=== PATIENT | female | born 1940 | race Caucasian/White ===

== ENCOUNTER → 2023-06-25 07:44 | Outpatient (REF) | payer OTHER, SELFPAY ==
[2023-06-25 08:25] LABS: % Basophils 1.5 % (0-2); % Eosinophils 8.3 % (0-6); % Immature Granulocytes 0.3 % (0-0.5); % Lymphocytes 28.8 % (20.5-51.1); % Monocytes 6.4 % (1.7-9.3); % Neutrophils 54.7 % (42.2-75.2); Absolute Basophils 0.1 10^3/uL (0-0.2); Absolute Eosinophils 0.7 10^3/uL (0-0.7); Absolute Lymphocytes 2.3 10^3/uL (1.2-3.4); Absolute Monocytes 0.5 10^3/uL (0.1-0.6); Absolute Neutrophils 4.3 10^3/uL (1.4-6.5); Hematocrit 44.4 % (37.0-47.0); Hemoglobin 14.6 g/dL (12.0-16.0); Mean Corp Hgb Conc. 32.9 g/dL (33.0-37.0); Mean Corpuscular Volume 88.1 fL (81.0-99.0); Mean Platelet Volume 9.1 fL (7.4-10.4); Nucleated Red Blood Cells % 0 %; Platelet Count 365 10^3/uL (130-400); Red Blood Cell Count 5.04 10^6/uL (4.20-5.40); Red Cell Dist. Width 13.7 % (11.5-14.5); White Blood Cell Count 7.9 10^3/uL (4.8-10.8)
[2023-06-25 08:50] LABS: ALT (SGPT) 18 U/L (0-35); AST (SGOT) 27 U/L (14-36); Albumin 4.8 g/dl (3.5-5.0); Alkaline Phosphatase 118 U/L (38-126); Blood Urea Nitrogen 19 mg/dl (7-17); Calcium 9.7 mg/dl (8.4-10.2); Carbon Dioxide 28 mmol/L (22-30); Chloride 100 mmol/L (98-107); Glucose 97 mg/dl (70-99); HDL Cholesterol 68 mg/dl; LDL Cholesterol, Calculated 102 mg/dl; Potassium 4.7 mmol/L (3.5-5.1); Sodium 139 mmol/L (135-145); Total Bilirubin 0.6 mg/dl (0.2-1.3); Total Cholesterol 195 mg/dl (50-199); Total Protein 7.7 g/dl (6.3-8.2); Triglyceride 128 mg/dl (10-149); Very Low Density Lipoprotein 25 mg/dl (0-30); eGFR > 60.00
[2023-06-25 09:20] LABS: TSH 1.39 uIU/ml (0.47-4.68)
== END ==
LOC: REG 07:44
PROVIDERS: ATTENDING PHYSICIAN Nurse Practitioner
DX: D72.829 Elevated white blood cell count, unspecified (principal); E87.1 Hypo-osmolality and hyponatremia; Z76.89 Persons encountering health services in other specified circumstances; Z00.00 Encounter for general adult medical examination without abnormal findings; E78.5 Hyperlipidemia, unspecified; R53.83 Other fatigue
CPT/HCPCS: 36415; 80053; 80061; 84443; 85025

== ENCOUNTER 2024-03-13 03:06 | Inpatient (IN) | payer OTHER, SELFPAY ==
[2024-03-12 20:33] VITALS: BP 108/63
--- NOTE | 2024-03-12 20:33 | ED.GENMED ---
ED Provider Triage
<Norma Giordano [employer] - Last Filed: 03/12/24 20:38>
-
Patient seen by provider in Triage?: Seen in Triage
Attestation: A medical screening examination has been initiated by a qualified medical provider. Based on the assessment performed at this time, it has been determined that an emergent medical condition may exist and the patient has been informed
that further medical evaluation and possible additional diagnostic testing may be needed.
HPI: 83-year-old female hx cholecystectomy, HTN, who said she sat down to dinner at 515 and suddenly felt ill so did not eat anything, she has had about 5 episodes of vomiting and midepigastric pain radiating around to the left flank. Feels
nauseous now. Last emesis was 30 minutes ago. Denies fever but has had chills. Denies diarrhea or constipation. No sick contacts.
GENERAL: Alert , in no apparent distress
EYE: No visual abnormalities.
NECK: Trachea midline
ENT: No visible abnormalities.
LUNGS: No acute respiratory distress
NEUROLOGICAL: Alert and oriented
SKIN: Skin intact. No visible changes.
MUSCULOSKELETAL: Moving extremities normally
PSYCH: Normal and appropriate interaction.
This is a medical evaluation conducted in person to initiate diagnostic evaluation and provide initial therapeutics. Please see further documentation by the treating clinician.
History of Present Illness
<Norma Giordano, [employer] - Last Filed: 03/12/24 20:38>
General
Chief Complaint: Abdominal Pain
Time Seen by Provider: 03/13/24 00:58
<Toy Brown DO - Last Filed: 03/13/24 02:07>
History of Present Illness
History of Present Illness:
TIME OF INITIAL ENCOUNTER: 1:05 AM
HPI: Patient presents due to epigastric discomfort associated with several episodes of vomiting earlier today. Of note, she had pancreatitis last year and at that time she had a cholecystectomy during that hospitalization. This feels very similar
to the time she had pancreatitis in the past. She does not drink alcohol.
EXAM:
GENERAL: Well appearing but in mild distress
HEENT: Moist oral mucosa
CARDIOVASCULAR: No murmurs, normal heart rate, regular rhythm, No chest wall tenderness
PULMONARY: No respiratory distress, breath sounds are clear and equal
ABDOMEN: Soft with no peritoneal signs, mild to moderate epigastric tenderness
NEUROLOGIC: Good strength all extremities, no coordination deficits
PSYCHIATRIC: Appropriate mental status, normal insight and judgement
EXTREMITIES: Nontender, no edema, moves all extremities equally
SKIN: No rash, no lesions
NUMBER AND COMPLEXITY OF PROBLEMS ADDRESSED AT THE ENCOUNTER
� Chronic conditions affecting care: She has had pancreatitis in the past
� Acute Exacerbation and/or Progression of Chronic Illness: This is an acute but recurring problem
� Differential Diagnosis includes: Recurrence of pancreatitis, hepatitis, bowel obstruction, mesenteric adenitis, UTI,
AMOUNT AND/OR COMPLEXITY OF DATA TO BE REVIEWED AND ANALYZED
� I performed an independent evaluation of and my interpretation is:
EKG:
CT: CT imaging is consistent with acute pancreatitis, she has had cholecystectomy, no common bile duct stones noted
X-rays:
Laboratory Studies: White count 26.4, hemoglobin 14.2, lipase unavailable, glucose 180, other chemistries relatively unremarkable
Other:
� Review of other/old records: I reviewed records, the patient had pancreatitis in June 2022t that time she had a cholecystectomy urinalysis shows greater than 100 white cells per high-powered field, however there is greater
than 30 squamous epithelial cells
� Clinical information was obtained by an independent historian: I spoke to daughter at bedside
� Prescriptions/Medications Considered but not given:
� Further testing considered but not performed:
RISK OF COMPLICATIONS AND/OR MORBIDITY OR MORTALITY OF PATIENT MANAGEMENT
� Social determinants of health affecting care: Lives at home
� Discussion with other providers: Hospitalist, Dr. Fitzgerald for admission
� Escalation of care including admission/observation vs risk of discharge considered: CT imaging is consistent with acute pancreatitis. She has had pancreatitis in the past. Several lipases were sent down to the lab including
ones that were obtained by the lab/IV team but they have been 'hemolyzed' recurrently. Although she has leukocytosis, she is afebrile and fairly well-appearing. The patient was given analgesia and IV fluids.
ANY OTHER UPDATES:
Past History
<Norma Giordano, [employer] - Last Filed: 03/12/24 20:38>
Past History
ED Past Medical History: Other (cystitis)
ED Past Surgical History: Gynecological and Tonsilectomy
Social History
Tobacco: Non-smoker
Living: with family
Phy Exam
<Toy Brown DO - Last Filed: 03/13/24 02:07>
Physical Exam
Physical Exam:
See HPI
Course
<Norma Giordano, [employer] - Last Filed: 03/12/24 20:38>
Orders/Labs/Results
Orders:
Orders
03/12/24 20:36
Urinalysis Reflex To Culture Urgent
Date Specimen was Collected: 03/13/24
Time Specimen was Collected: 01:24
Ondansetron HCl [Zofran] 4 mg PO NOW STA
03/12/24 20:37
CT Abd/pelvis Wo Iv Cont Urgent
Comment: changed to non contrast iv infiltrated
Reason For Exam: epigastric pain radiating around to left flank
03/12/24 20:39
Ondansetron Orally Disint [Zofran Odt (Orally Disintegrating)] 4 mg .ROUTE .STK-MED ONE
03/12/24 20:41
Ondansetron Orally Disint [Zofran Odt (Orally Disintegrating)] 4 mg PO NOW STA
03/12/24 20:42
Amylase Urgent
Comment: ADD ON
Complete Blood Count/With Diff Urgent
Comprehensive Metabolic Panel Urgent
03/13/24 00:47
Add On- LAB Urgent
Tests Added?: amalyse
03/13/24 00:51
0.9% Sodium Chloride 1000 ml [Nss] 1,000 ml IV BOLUS
Morphine Sulfate 4 mg IV NOW STA
03/13/24 01:02
Add On- LAB Urgent
Tests Added?: LDH
03/13/24 01:07
0.9% Sodium Chloride 1000 ml [Nss] 1,000 ml IV BOLUS
Ondansetron Injectable [Zofran] 4 mg IV NOW STA
03/13/24 01:25
Urine Microscopic Reflex Cult Urgent
Urine Culture Urgent
DEMARCO Source: U
Specimen Description:
Date Specimen was Collected: 03/13/24
Time Specimen was Collected: 01:24
03/13/24 01:31
Admit/Transfer Patient As Directed
Co-Sign Provider:
Level of Care: Inpatient admission
Assign to:: Medical/Surgical
Physician / Group: hospitalist
Diagnosis: acute pancreatitis
Reason for Hospitalization: acute pancreatitis
Expected length of stay greater than two midnights?: Yes
ELOS- Estimated Length of Stay in days: 2
I certify the patient meets the requirements for IP care: Yes
03/13/24 01:37
PRN Pain Medication Management As Directed
May give lesser potent ordered pain med per pt: Yes
preference::
Protocol:: Medication orders for pain may be administered in a
manner that supports deferring to patient preference
when the pt is:
- Requesting an ordered lesser potent pain medication.
Least to most potent pain medications are defined
as: acetaminophen < NSAID < tramadol < opioids
(morphine, oxycodone, hydromorphone).
- Requesting a lesser dose of the same medication IF
ORDERED.
- Requesting a less intrusive route of administration
if both routes are prescribed by the provider (PO <
IV).
03/13/24 01:38
Code Status As Directed
Resuscitation Status: Full Code
03/13/24 01:46
Amylase Urgent
LDH Urgent
Comment: ADDED
Lipase Urgent
03/13/24 01:47
Lactic Acid Urgent
Abnormal Lab Results
03/12/24 03/13/24
20:42 01:25
WBC 26.4 H 10^3/uL
(4.8-10.8)
Plt Count 404 H 10^3/uL
(130-400)
Abs Immat Gran (auto) 0.1 H 10^3/uL
(0-0.05)
Absolute Neuts (auto) 23.2 H 10^3/uL
(1.4-6.5)
Absolute Monos (auto) 1.2 H 10^3/uL
(0.1-0.6)
Neutrophils % 87.7 H %
(42.2-75.2)
Lymphocytes % 6.8 L %
(20.5-51.1)
Glucose 180 H mg/dl
(70-99)
Urine Ketones 1+ A
(Negative)
Ur Occult Blood Reflex Trace A
(Negative)
Leukocyte Esterase Rfl 2+ A
(Negative)
Urine RBC 3-6 A /HPF
(0-2)
Urine WBC (Reflex) >100 A /HPF
(0-5)
Urine Bacteria (Reflex) Many A
(Negative)
03/12/24 20:42
03/12/24 20:42
Vital Signs
Initial and Last Documented VS:
Initial Vital Signs
Pulse Resp BP Pulse Ox
85 20 108/63 97
03/12/24 20:33 03/12/24 20:33 03/12/24 20:33 03/12/24 20:33
Last Documented Vital Signs
Temp Pulse Resp BP Pulse Ox
36.3 C 91 28 127/67 95
03/12/24 20:34 03/13/24 00:30 03/13/24 00:30 03/12/24 23:21 03/12/24 22:48
<Toy Brown, - Last Filed: 03/13/24 02:07>
Orders/Labs/Results
Orders:
Orders
03/12/24 20:36
Urinalysis Reflex To Culture Urgent
Date Specimen was Collected: 03/13/24
Time Specimen was Collected: 01:24
Ondansetron HCl [Zofran] 4 mg PO NOW STA
03/12/24 20:37
CT Abd/pelvis Wo Iv Cont Urgent
Comment: changed to non contrast iv infiltrated
Reason For Exam: epigastric pain radiating around to left flank
03/12/24 20:39
Ondansetron Orally Disint [Zofran Odt (Orally Disintegrating)] 4 mg .ROUTE .STK-MED ONE
03/12/24 20:41
Ondansetron Orally Disint [Zofran Odt (Orally Disintegrating)] 4 mg PO NOW STA
03/12/24 20:42
Amylase Urgent
Comment: ADD ON
Complete Blood Count/With Diff Urgent
Comprehensive Metabolic Panel Urgent
03/13/24 00:47
Add On- LAB Urgent
Tests Added?: amalyse
03/13/24 00:51
0.9% Sodium Chloride 1000 ml [Nss] 1,000 ml IV BOLUS
Morphine Sulfate 4 mg IV NOW STA
03/13/24 01:02
Add On- LAB Urgent
Tests Added?: LDH
03/13/24 01:07
0.9% Sodium Chloride 1000 ml [Nss] 1,000 ml IV BOLUS
Ondansetron Injectable [Zofran] 4 mg IV NOW STA
03/13/24 01:25
Urine Microscopic Reflex Cult Urgent
Urine Culture Urgent
DEMARCO Source: U
Specimen Description:
Date Specimen was Collected: 03/13/24
Time Specimen was Collected: :24
03/13/24 01:31
Admit/Transfer Patient As Directed
Co-Sign Provider:
Level of Care: Inpatient admission
Assign to:: Medical/Surgical
Physician / Group: hospitalist
Diagnosis: acute pancreatitis
Reason for Hospitalization: acute pancreatitis
Expected length of stay greater than two midnights?: Yes
ELOS- Estimated Length of Stay in days: 2
I certify the patient meets the requirements for IP care: Yes
03/13/24 01:37
PRN Pain Medication Management As Directed
May give lesser potent ordered pain med per pt: Yes
preference::
Protocol:: Medication orders for pain may be administered in a
manner that supports deferring to patient preference
when the pt is:
- Requesting an ordered lesser potent pain medication.
Least to most potent pain medications are defined
as: acetaminophen < NSAID < tramadol < opioids
(morphine, oxycodone, hydromorphone).
- Requesting a lesser dose of the same medication IF
ORDERED.
- Requesting a less intrusive route of administration
if both routes are prescribed by the provider (PO <
IV).
03/13/24 01:38
Code Status As Directed
Resuscitation Status: Full Code
03/13/24 01:46
Amylase Urgent
LDH Urgent
Comment: ADDED
Lipase Urgent
03/13/24 01:47
Lactic Acid Urgent
Abnormal Lab Results
03/12/24 03/13/24
20:42 01:25
WBC 26.4 H 10^3/uL
(4.8-10.8)
Plt Count 404 H 10^3/uL
(130-400)
Abs Immat Gran (auto) 0.1 H 10^3/uL
(0-0.05)
Absolute Neuts (auto) 23.2 H 10^3/uL
(1.4-6.5)
Absolute Monos (auto) 1.2 H 10^3/uL
(0.1-0.6)
Neutrophils % 87.7 H %
(42.2-75.2)
Lymphocytes % 6.8 L %
(20.5-51.1)
Glucose 180 H mg/dl
(70-99)
Urine Ketones 1+ A
(Negative)
Ur Occult Blood Reflex Trace A
(Negative)
Leukocyte Esterase Rfl 2+ A
(Negative)
Urine RBC 3-6 A /HPF
(0-2)
Urine WBC (Reflex) >100 A /HPF
(0-5)
Urine Bacteria (Reflex) Many A
(Negative)
03/12/24 20:42
03/12/24 20:42
Vital Signs
Initial and Last Documented VS:
Initial Vital Signs
Pulse Resp BP Pulse Ox
85 20 108/63 97
03/12/24 20:33 03/12/24 20:33 03/12/24 20:33 03/12/24 20:33
Last Documented Vital Signs
Temp Pulse Resp BP Pulse Ox
36.3 C 91 28 127/67 95
03/12/24 20:34 03/13/24 00:30 03/13/24 00:30 03/12/24 23:21 03/12/24 22:48
<Toy Brown, - Last Filed: 03/13/24 02:07>
*Critical Care Note
Total Time (30-74mins, 75-104mins- exclusive of procedures): Not Applicable
ED Attending Note
<Norma Giordano NP - Last Filed: 03/12/24 20:38>
-
Portions of this chart may have been created with voice recognition software.� Occasional wrong word or��sound alike� substitutions may have occurred due to the inherent limitations of voice recognition software.
Discharge Plan
Departure
Patient Disposition: Admit
Date of Disposition: 03/13/24
Time of Disposition: 02:05
Presentation/result/management discussed w/ accepting MD/DO: Hospitalist
Discharge Problem:
Acute pancreatitis
Prescriptions:
No Action
amlodipine 5 mg Tablet
5 mg PO DAILY
multivitamin Tablet
1 tab PO DAILY
magnesium 500 mg Tablet
500 mg PO DAILY
acetaminophen 650 mg Tablet
650 mg PO Q6H PRN (Reason: pain)
apple cider vinegar 600 mg Capsule
1,200 mg PO DAILY
ibuprofen 400 mg Tablet
400 mg PO Q6H PRN (Reason: pain)
zinc 50 mg Tablet
50 mg PO DAILY
cinnamon bark [Cinnamon] 500 mg Capsule
2,500 mg PO DAILY
cholecalciferol (vitamin D3) 125 mcg (5,000 unit) Tablet
125 mcg PO DAILY
red yeast rice 600 mg Tablet
600 mg PO QPM
mupirocin 2 % Ointment
1 applic TOPICAL BID
aspirin 325 mg tablet
325 mg PO DAILY 30 Days Qty: 30 0RF
Rx Instructions:
Take for 30 days after surgery
celecoxib [Celebrex] 100 mg capsule
100 mg PO BID 30 Days Qty: 60 0RF
tramadol 50 mg tablet
50 mg PO Q6H PRN (Reason: pain) 14 Days Qty: 60 0RF
dexamethasone 4 mg tablet
4 mg PO BID Qty: 7 0RF
Referrals:
PRIVATE,PHYSICIAN [Active] -
Interventions
Interventions:
*Risk Screen - Suicide Last Done: 03/12/24 20:33
*General Assessment Last Done: 03/12/24 20:33
*Neglect/Abuse Screening Last Done: 03/12/24 20:33
QY-Vsomxr-Nrqxpjymiv Assessment Last Done: 03/12/24 22:48
Discharge Date and Time
Print Language: HUNGARIAN
[2024-03-12] MEDS: ZOFRAN ODT (ORALLY DISINTEGRATING) 4 MG PO (20:41)
[2024-03-12 21:03] LABS: Hematocrit 42.5 % (37.0-47.0); Hemoglobin 14.2 g/dL (12.0-16.0); Mean Corp Hgb Conc. 33.4 g/dL (33.0-37.0); Mean Corpuscular Hgb 29.8 pg (27.0-31.0); Mean Corpuscular Volume 89.3 fL (81.0-99.0); Mean Platelet Volume 9.1 fL (7.4-10.4); Platelet Count 404 10^3/uL (130-400); Red Blood Cell Count 4.76 10^6/uL (4.20-5.40); Red Cell Dist. Width 13.1 % (11.5-14.5); White Blood Cell Count 26.4 10^3/uL (4.8-10.8)
[2024-03-12 21:16] LABS: % Basophils 0.2 % (0-2); % Eosinophils 0.2 % (0-6); % Immature Granulocytes 0.5 % (0-0.5); % Lymphocytes 6.8 % (20.5-51.1); % Monocytes 4.6 % (1.7-9.3); % Neutrophils 87.7 % (42.2-75.2); Absolute Basophils 0.1 10^3/uL (0-0.2); Absolute Immature Granulocytes 0.1 10^3/uL (0-0.05); Absolute Lymphocytes 1.8 10^3/uL (1.2-3.4); Absolute Monocytes 1.2 10^3/uL (0.1-0.6); Absolute Neutrophils 23.2 10^3/uL (1.4-6.5); Nucleated Red Blood Cells % 0 %
[2024-03-12 21:21] LABS: ALT (SGPT) 17 U/L (0-35); AST (SGOT) 28 U/L (14-36); Albumin 4.4 g/dl (3.5-5.0); Alkaline Phosphatase 122 U/L (38-126); Blood Urea Nitrogen 15 mg/dl (7-17); Calcium 9.4 mg/dl (8.4-10.2); Carbon Dioxide 27 mmol/L (22-30); Chloride 99 mmol/L (98-107); Glucose 180 mg/dl (70-99); Potassium 3.8 mmol/L (3.5-5.1); Sodium 137 mmol/L (135-145); Total Bilirubin 0.3 mg/dl (0.2-1.3); Total Protein 7.2 g/dl (6.3-8.2); eGFR > 60.00
[2024-03-12 22:40] VITALS: BP 141/70
[2024-03-12 23:21] VITALS: BP 127/67
[2024-03-13] VITALS (7 sets, daily range): BP systolic 120–150; BP diastolic 58–90; BMI 26.3
[2024-03-13] MEDS: ZOFRAN 4 MG IV ×3 (01:15→09:52)
[2024-03-13] MEDS: MORPHINE SULFATE 4 MG IV ×2 (01:15→11:37)
[2024-03-13] MEDS: NSS 1000 IV (01:16)
[2024-03-13 01:33] LABS: Urine Albumin Trace (Neg - Trace); Urine Bilirubin Negative (Negative); Urine Character Slightly Cloudy (Clear); Urine Color Yellow; Urine Glucose Negative (Negative); Urine Ketone 1+ (Negative); Urine Leukocyte 2+ (Negative); Urine Nitrite Negative (Negative); Urine Occult Blood Trace (Negative); Urine Urobilinogen Negative (Neg - 1+)
--- NOTE | 2024-03-13 01:41 | HPS.HSE ---
Family Physician
-
Family Physician: Rani Aguilera
Chief Complaint
-
Abdominal pain
History of Present Illness
This is an 83-year-old female was a past medical history significant for hypertension and a prior history of gallstone pancreatitis presenting to the emergency department with acute epigastric abdominal pain that started today.
Patient had an episode of pancreatitis last year and was diagnosed with gallstone pancreatitis status post cholecystectomy. She does not drink alcohol. She has no history of diabetes or hyperlipidemia. She is only on amlodipine and denies any
other medications. She has no recent travels or sick contacts. Patient reported that about 2 weeks ago she noticed epigastric pain that was similar to prior episode of pancreatitis but resolved spontaneously. 2 weeks later she which was today she
developed severe epigastric pain radiating to the back and associated with nausea and nonbloody and nonbilious vomiting. Patient denies having any fevers or chills. She denies any history of GERD. She states she has not been on any recent
antibiotics. Only medication is amlodipine and vitamin supplementation.
In the emergency department she was afebrile, blood pressure was stable at 127/67, pulse 91 oxygen saturation 98%. CBC notable for leukocytosis to 26 but otherwise unremarkable. Electrolytes BUN/creatinine were within normal limits. LFTs within
normal limits. Lipase is still pending. CT of the abdomen and pelvis shows large amount of peripancreatic and retroperitoneal stranding consistent with acute pancreatitis, no common bile duct stones noted.
Medical History
Past Medical History
Past Medical History: Reports HTN
Past Surgical History: Reports Cholecystectomy
Social History
Tobacco: Non-smoker
Alcohol: None
Drug: None
Personal:
Living: With Family
Employment: Retired
Family History
Family History: Not pertinent
Allergies / Home Medications
Allergies reflects when Allergies were last updated in [employer].
Home Medications with original date entered in [employer]
Allergy/Medication List:
Allergies
Allergy/AdvReac Type Severity Reaction Status Date / Time
No Known Allergies Allergy Verified 08/23/22 08:24
Home Medications
amlodipine 5 mg tablet 5 mg PO DAILY Blood pressure 06/13/22
Review of Systems
-
History Source: Patient
Constitutional: Reports No Symptoms
EENT: Reports No Symptoms
Respiratory: Reports No Symptoms
Cardiac: Reports No Symptoms
Abdomen/GI: Reports Abdominal Pain, Nausea and Vomiting
: Reports No Symptoms
Musculoskeletal: Reports No Symptoms
Skin: Reports No Symptoms
Neurological: Reports No Symptoms
Endocrine: Reports No Symptoms
Hematologic/Lymphatic: Reports No Symptoms
Psych: Reports No Symptoms
Physical Exam
Vital Signs
Vital Signs
Temp Pulse Resp BP Pulse Ox
97.4 F 91 28 127/67 95
03/12/24 20:34 03/13/24 00:30 03/13/24 00:30 03/12/24 23:21 03/12/24 22:48
Physical Exam
General: Well Developed, Well Nourished and Comfortable
HEENT: NormoCephalic, Anicteric, Moist mucous membranes and Atraumatic
Respiratory: Clear
Cardiac: S1/S2 and Regular Rhythm
Breast: Deferred by me
GI: Soft, Non Distended, Normal Bowel Sounds and Tender
Rectal: Deferred by Provider
Genito-urinary: Deferred by me
Musculoskeletal: No Clubbing, No Cyanosis and No Edema
Skin: Warm
Neuro: AO x 3
Hematologic/Lymphatic: No Lymphadenopathy
Psych: Calm
Laboratory Results
-
03/12/24 20:42
03/12/24 20:42
Laboratory Results
Total Bilirubin 0.3 mg/dl (0.2-1.3) 03/12/24 20:42
AST 28 U/L (14-36) 03/12/24 20:42
ALT 17 U/L (0-35) 03/12/24 20:42
Alkaline Phosphatase 122 U/L (38-126) 03/12/24 20:42
Lipase Cancelled 03/13/24 00:33
Data Reviewed
-
CT Scan: Report Reviewed by me
Lab Data: Labs Reviewed by me
Old Records: Reviewed
Impression/Plan
-
IMPRESSION:
83 y.o female with h/o gallstone pancreatis s/p cholecystectomy last year presenting with abdominal pain. CT scan c/w acute pancreatitis. Leukocytosis on labs. LFT WNL. Lipase remains pending.
PLAN:
1. Acute pancreatitis - Etiology elusive as patient is s/p cholecystectomy, has no current CBD stone or dilation of the bile duct or pancreatic duct. No etoh. No new medications. No h/o dm II or tryglyceridemia. Still likely gall stone episode
with a possibly passed stone.
- admit to med/surg
- npo, iv fluids, antiemetics and pain control
- trend lfts, check lipase in am
- consider mrcp
- check triglycerides
- Possibly virus or autoimmune, GI consultation given cryptic nature of etiology
2. HTN
- continue amlodipine for now
DVT PPX - lovenox sq
Code status - Full Code
[2024-03-13 01:42] LABS: Urine Amorphous Seen; Urine Bacteria Many (Negative); Urine Mucus Moderate; Urine Squamous Cell >30 /LPF (Few); Urine White Cell >100 /HPF (0-5)
[2024-03-13 01:44] LABS: Urine Calcium Oxalate Crystals Seen
[2024-03-13 02:18] LABS: Lactic Acid 3.4 mmol/L (0.7-2.0)
[2024-03-13 02:28] LABS: Amylase 7115 U/L (30-110)
[2024-03-13 02:42] LABS: LDH 171 U/L (120-246)
[2024-03-13 02:47] LABS: Amylase 2653 U/L (30-110); Lipase > 4000 U/L (23-300)
[2024-03-13] MEDS: MORPHINE SULFATE 2 MG IV ×2 (04:12→08:23)
[2024-03-13] MEDS: LR 1000 IV ×4 (04:13→23:04)
[2024-03-13 07:01] LABS: Hemoglobin 16.2 g/dL (12.0-16.0); Mean Corp Hgb Conc. 33.1 g/dL (33.0-37.0); Mean Corpuscular Hgb 29.1 pg (27.0-31.0); Mean Corpuscular Volume 88.1 fL (81.0-99.0); Mean Platelet Volume 9.3 fL (7.4-10.4); Platelet Count 344 10^3/uL (130-400); Red Blood Cell Count 5.56 10^6/uL (4.20-5.40); Red Cell Dist. Width 13.3 % (11.5-14.5); White Blood Cell Count 19.3 10^3/uL (4.8-10.8)
[2024-03-13] MEDS: ROXICODONE 5 MG PO (07:05)
[2024-03-13 07:34] LABS: ALT (SGPT) 17 U/L (0-35); AST (SGOT) 26 U/L (14-36); Albumin 4.5 g/dl (3.5-5.0); Alkaline Phosphatase 120 U/L (38-126); Blood Urea Nitrogen 15 mg/dl (7-17); Calcium 9.6 mg/dl (8.4-10.2); Carbon Dioxide 21 mmol/L (22-30); Chloride 101 mmol/L (98-107); Direct Bilirubin 0.2 mg/dl (0.0-0.4); Estimated Creatinine Clearance 63 ml/min; Glucose 194 mg/dl (70-99); Potassium 4.2 mmol/L (3.5-5.1); Sodium 139 mmol/L (135-145); Total Bilirubin 0.4 mg/dl (0.2-1.3); Total Protein 7.3 g/dl (6.3-8.2); Triglycerides 80 mg/dl (10-149); eGFR > 60.00
[2024-03-13] MEDS: NORVASC 5 MG PO (08:23)
[2024-03-13 09:37] LABS: Lipase > 4000 U/L (23-300)
--- NOTE | 2024-03-13 13:21 | W.PN.HOSP.TC ---
Today's Communication/Plan
-
pain control
ivf
npo
gi recs
Assessment / Plan
Assessment / Plan
Physical Exam
General: Well Developed, Well Nourished and Comfortable
HEENT: NormoCephalic, Anicteric, Moist mucous membranes and Atraumatic
Respiratory: Clear
Cardiac: S1/S2 and Regular Rhythm
Breast: Deferred by me
GI: Soft, Non Distended, Normal Bowel Sounds and mid epigastric tenderness
Rectal: Deferred by Provider
Genito-urinary: Deferred by me
Musculoskeletal: No Clubbing, No Cyanosis and No Edema
Skin: Warm
Neuro: AO x 3
Hematologic/Lymphatic: No Lymphadenopathy
Psych: Calm
83 y.o female with h/o gallstone pancreatis s/p cholecystectomy last year presenting with abdominal pain. CT scan c/w acute pancreatitis. Leukocytosis on labs. LFT WNL. Lipase remains pending.
PLAN:
# Acute pancreatitis - Etiology elusive as patient is s/p cholecystectomy, has no current CBD stone or dilation of the bile duct or pancreatic duct. No etoh. No new medications. No h/o dm II or tryglyceridemia. Still likely gall stone episode
with a possibly passed stone.
- admit to med/surg
- npo, iv fluids, antiemetics and pain control
- trend lfts, check lipase in am
- consider mrcp - f/u Gi recs
- triglycerides WNL
- GI consulted
#Elevated Lactate
- most likely adrenergic
� Follow-up lactate
� Hemodynamically stable
# HTN
- continue amlodipine for now
DVT PPX - lovenox sq
Code status - Full Code
Anticipated Discharge: 24 - 48 hours
Subjective/Interval History
-
Date of Service: March 13, 2024
Pain still present, not controlled with current regimen
Objective Data
-
Labs:
Laboratory Results
03/12/24 03/13/24
20:42 05:52
WBC 19.3 H
Hgb 16.2 H
Hct 49.0 H
Plt Count 344
Sodium 137 139
Potassium 3.8 4.2
Chloride 99 101
Carbon Dioxide 27 21 L
BUN 15 15
Creatinine 0.6 0.5 L
Glucose 180 H 194 H
Calcium 9.4 9.6
Total Bilirubin 0.3 0.4
AST 28 26
ALT 17 17
Alkaline Phosphatase 122 120
Vital Signs:
Vital Signs
Temp Pulse Resp BP Pulse Ox
97.4 F 114 18 147/90 96
03/13/24 07:00 03/13/24 08:23 03/13/24 07:00 03/13/24 08:23 03/13/24 07:00
Review of Systems
-
History Source: Patient
All other systems: Not reviewed unless documented
Data Reviewed
-
CT Scan: Report Reviewed by me
Labs: Labs Reviewed by me
--- NOTE | 2024-03-13 14:47 | CM ---
Initial assessment completed with pt at bedside.
Pt is an 83yr old female admitted for pancreatitis.
At baseline, Pt lives with her live on the main floor of their daughters home. Bed and Bath are on the one living level.
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
Pt has no personal DME or hx of VN/SNF. Pt does note they have all the equipment for her .
PCP; [facility]
Pharm; [address]
PLAN; Dc to home with no anticipated needs
[2024-03-13 15:09] LABS: Lactic Acid 13.5 mmol/L (0.7-2.0)
--- NOTE | 2024-03-13 15:50 | CON.GI ---
Consultation
-
Date/Time Consultation Requested: 03/13/24
Date/Time Consultation Performed: 03/13/24
Requesting Provider:
Performing Provider:
Reason for Consultation: acute pancreatitis
Medical History
Chief Complaint / HPI
Chief Complaint: epigastric pain
History of Present Illness:
This is a very pleasant 83-year-old female with past medical history of gallstone pancreatitis status post cholecystectomy in June 2022 with IntraOp cholangiogram with no evidence of CBD stone, HTN, Interstitial cystitis, heart murmur, OA and was
doing well after her cholecystectomy but yesterday she started to have severe epigastric pain radiating to the back similar to her prior episode of pancreatitis and presented to the emergency room and was found to have an elevated lipase level with
normal LFTs and CT was consistent with acute interstitial pancreatitis. No necrosis or fluid collection was noted no ductal dilatation was noted also. She denies any fevers or chills no nausea or vomiting. No recent change in medication she was
only taking amlodipine on a consistent basis and sometimes she takes NSAIDs she recently started apple cider vinegar and turmeric. She denies any alcohol use. She did have triglyceride levels checked which were normal she did have leukocytosis
which is improving. She has been started on lactated Ringer's and pain control
Past Medical History
Past Medical History: Other (gallstone pancreatitis status post cholecystectomy, HTN, Interstitial cystitis, heart murmur, OA)
Past Surgical History: Other (Cholecystectomy 07/02/2022, Right reverse total shoulder arthroplasty with augmented glenoid and biceps tenodesis 08/23/2022)
Social History
Tobacco: Non-Smoker
Alcohol: None
Drug: None
Personal:
Living: With Family
Employment: Retired
Family History
Family History: Other (no h/o colon cancer or pancreatic cancer)
Allergies / Home Medications
Allergy/AdvReac Type Severity Reaction Status Date / Time
No Known Allergies Allergy Verified 08/23/22 08:24
�Medication �Instructions �Recorded
amlodipine 5 mg tablet 5 mg PO DAILY Blood pressure 06/13/22
acetaminophen 650 mg tablet 650 mg PO Q6H PRN pain 08/01/22
apple cider vinegar 600 mg capsule 1,200 mg PO DAILY 08/01/22
cholecalciferol (vitamin D3) 125 125 mcg PO DAILY 08/01/22
mcg (5,000 unit) tablet
cinnamon bark 500 mg capsule 2,500 mg PO DAILY 08/01/22
(Cinnamon)
ibuprofen 400 mg tablet 400 mg PO Q6H PRN pain 08/01/22
magnesium 500 mg tablet 500 mg PO DAILY 08/01/22
multivitamin 1 tab PO DAILY 08/01/22
red yeast rice 600 mg tablet 600 mg PO QPM 08/01/22
zinc 50 mg tablet 50 mg PO DAILY 08/01/22
aspirin 325 mg tablet 325 mg PO DAILY Prevent Blood 08/23/22
Clots 30 days #30 tabs
celecoxib 100 mg capsule (Celebrex) 100 mg PO BID 30 days #60 caps 08/23/22
dexamethasone 4 mg tablet 4 mg PO BID #7 tabs 08/23/22
mupirocin 2 % topical ointment 1 applic topical BID 08/23/22
tramadol 50 mg tablet 50 mg PO Q6H PRN pain 14 days #60 08/23/22
tabs
Review of Systems
-
All other systems: A 12 pt ROS was Negative except as stated above in HPI
Vital Signs
Temp Pulse Resp BP Pulse Ox
97.4 F 114 18 147/90 96
03/13/24 07:00 03/13/24 08:23 03/13/24 07:00 03/13/24 08:23 03/13/24 07:00
Physical Exam
Exam
General: No Apparent Distress
HEENT: Normocephalic
Respiratory: Clear
Cardiac: S1/S2 and Murmur (systolic murmur)
GI: Soft, Non Distended, Normal Bowel Sounds and Tender (epigastric tenderness)
Musculoskeletal: No Clubbing
Skin: Warm
Neuro: Awake, Alert and Oriented
Psych: Calm
Results
WBC 19.3 10^3/uL (4.8-10.8) H 03/13/24 05:52
Hgb 16.2 g/dL (12.0-16.0) H 03/13/24 05:52
Hct 49.0 % (37.0-47.0) H 03/13/24 05:52
MCV 88.1 fL (81.0-99.0) 03/13/24 05:52
Plt Count 344 10^3/uL (130-400) 03/13/24 05:52
Absolute Neuts (auto) 23.2 10^3/uL (1.4-6.5) H 03/12/24 20:42
Sodium 139 mmol/L (135-145) 03/13/24 05:52
Potassium 4.2 mmol/L (3.5-5.1) 03/13/24 05:52
Chloride 101 mmol/L (98-107) 03/13/24 05:52
Carbon Dioxide 21 mmol/L (22-30) L 03/13/24 05:52
BUN 15 mg/dl (7-17) 03/13/24 05:52
Creatinine 0.5 mg/dL (0.6-1.0) L 03/13/24 05:52
Calcium 9.6 mg/dl (8.4-10.2) 03/13/24 05:52
Total Bilirubin 0.4 mg/dl (0.2-1.3) 03/13/24 05:52
AST 26 U/L (14-36) 03/13/24 05:52
ALT 17 U/L (0-35) 03/13/24 05:52
Alkaline Phosphatase 120 U/L (38-126) 03/13/24 05:52
Amylase 2653 U/L (30-110) H* 1207/24 01:46
Lipase > 4000 U/L (23-300) H* 03/13/24 05:52
Diagnostic Image Results:
03/13/24 CT Abd/pelvis Wo Iv or oral Cont
IMPRESSION:
Marked pancreatic/peripancreatic edematous changes with accompanying fluid extending into the anterior pararenal spaces bilaterally compatible with acute pancreatitis. No gross accompanying well-formed abnormal focal fluid collection.
Prior cholecystectomy. Likely mild pancreatic ductal dilatation similar to prior CT. No findings to suggest intrahepatic biliary tract dilatation.
Large left-sided urinary bladder calcification/calculus again seen, possibly representing Jackstone calculus.
07/01/2022 MRI with MRCP
IMPRESSION:
1. Acute interstitial edematous pancreatitis.
2. Cholelithiasis.
3. No MRCP evidence for choledocholithiasis. No intrahepatic or extrahepatic bile duct dilation. Low signal intensity focus adjacent to the common bile duct at the level of the pancreatic head is favored to represent gas within a periampullary
duodenal diverticulum in correlation with the recent prior CT. An ERCP could be performed if there is persistent clinical concern for a distal impacted gallstone and/or sludge.
Prior GI Procedures:
EGD: none
Colonoscopy: 10 years ago normal per patient
Assessment / Plan
-
Acute recurrent pancreatitis as described above her first episode of gallstone pancreatitis was in June 2022 status post cholecystectomy then an MRCP and IOC at that time were negative for CBD stone. It still possible that she may have passed
sludge or stone she had no other recent change in medications, triglyceride levels are normal, and no use of alcohol. Will get an MRCP and continue supportive care with IV fluids, pain control and added Pepcid also. also started her on clear
liquids today.
She was also diagnosed with a recent heart murmur about 6 months ago and has an appointment with a rn new grad and for echo
Data Reviewed
-
CT Scan: Report Reviewed by me
MRI: Report Reviewed by me
-
-
Thank you for consultation and allowing me to participate in the patient's care. Please call the property preservation specialist GI physician during the after hours with any questions or concerns.
[2024-03-13] MEDS: NSS (PRESERVATIVE FREE) 8 ML IV (17:41)
[2024-03-13] MEDS: PEPCID 20 MG IV (17:42)
[2024-03-13] MEDS: LOVENOX 40 MG SC (17:42)
[2024-03-14 00:45] VITALS: BP 142/79
[2024-03-14] MEDS: MORPHINE SULFATE 4 MG IV (01:38)
[2024-03-14] MEDS: LR 1000 IV ×3 (04:54→11:45)
[2024-03-14 06:00] VITALS: BMI 28.2
[2024-03-14 07:05] VITALS: BP 167/93
[2024-03-14] MEDS: NORVASC 5 MG PO (07:56)
[2024-03-14] MEDS: NSS (PRESERVATIVE FREE) 8 ML IV (07:56)
[2024-03-14] MEDS: PEPCID 20 MG IV (07:56)
[2024-03-14 08:27] LABS: ALT (SGPT) 12 U/L (0-35); AST (SGOT) 24 U/L (14-36); Albumin 1.9 g/dl (3.5-5.0); Alkaline Phosphatase 60 U/L (38-126); Blood Urea Nitrogen 9 mg/dl (7-17); Calcium 7.5 mg/dl (8.4-10.2); Carbon Dioxide 17 mmol/L (22-30); Chloride 102 mmol/L (98-107); Estimated Creatinine Clearance 65 ml/min; Glucose 76 mg/dl (70-99); Potassium 3.9 mmol/L (3.5-5.1); Sodium 131 mmol/L (135-145); Total Bilirubin 0.5 mg/dl (0.2-1.3); Total Protein 3.7 g/dl (6.3-8.2); eGFR > 60.00
[2024-03-14 09:39] LABS: Lactic Acid 1.1 mmol/L (0.7-2.0)
[2024-03-14 11:02] LABS: Hemoglobin 10.7 g/dL (12.0-16.0); Mean Corp Hgb Conc. 33.4 g/dL (33.0-37.0); Mean Corpuscular Hgb 30.2 pg (27.0-31.0); Mean Corpuscular Volume 90.4 fL (81.0-99.0); Red Blood Cell Count 3.54 10^6/uL (4.20-5.40); Red Cell Dist. Width 13.7 % (11.5-14.5); White Blood Cell Count 18.7 10^3/uL (4.8-10.8)
[2024-03-14] MEDS: ROXICODONE 5 MG PO (12:00)
--- NOTE | 2024-03-14 13:24 | W.PN.HOSP.TC ---
Today's Communication/Plan
-
Diet as per GI, GI recs
Continue IV fluids
Pain control
Monitor heart rate, sodium levels
Assessment / Plan
Assessment / Plan
Physical Exam
General: Well Developed, Well Nourished and Comfortable
HEENT: NormoCephalic, Anicteric, Moist mucous membranes and Atraumatic
Respiratory: Clear
Cardiac: S1/S2 and Regular Rhythm
Breast: Deferred by me
GI: Soft, Non Distended, Normal Bowel Sounds and mid epigastric tenderness
Rectal: Deferred by Provider
Genito-urinary: Deferred by me
Musculoskeletal: No Clubbing, No Cyanosis and No Edema
Skin: Warm
Neuro: AO x 3
Hematologic/Lymphatic: No Lymphadenopathy
Psych: Calm
83 y.o female with h/o gallstone pancreatis s/p cholecystectomy last year presenting with abdominal pain. CT scan c/w acute pancreatitis. Leukocytosis on labs. LFT WNL. Lipase remains pending.
PLAN:
# Acute pancreatitis - Etiology elusive as patient is s/p cholecystectomy, has no current CBD stone or dilation of the bile duct or pancreatic duct. No etoh. No new medications. No h/o dm II or tryglyceridemia. Still likely gall stone episode
with a possibly passed stone.
- admit to med/surg
-MRI with acute interstitial edematous pancreatitis; surrounding edema, probable small developing peripancreatic fluid collection
� Possible small pancreatic head mass is felt to be unlikely although cannot be excluded�will need to be followed up outpatient
- npo, iv fluids, antiemetics and pain control
- trend lfts
- consider mrcp - f/u Gi recs
- triglycerides WNL
- GI consulted
#Elevated Lactate
- most likely adrenergic
� Follow-up lactate�resolved
� Hemodynamically stable
#Hyponatremia
� Monitor with resuscitation
# HTN
- continue amlodipine for now
DVT PPX - lovenox sq
Code status - Full Code
Anticipated Discharge: Within 24 hours
Subjective/Interval History
-
Date of Service: March 14, 2024
Pain improved
Objective Data
-
Labs:
Laboratory Results
03/14/24
06:39
WBC 18.7 H
Hgb 10.7 L D
Hct 32.0 L
Plt Count
Sodium 131 L D
Potassium 3.9
Chloride 102
Carbon Dioxide 17 L
BUN 9
Creatinine 0.4 L
Glucose 76
Calcium 7.5 L D
Total Bilirubin 0.5
AST 24
ALT 12
Alkaline Phosphatase 60
Vital Signs:
Vital Signs
Temp Pulse Resp BP Pulse Ox
98.0 F 127 18 167/93 94
03/14/24 07:05 03/14/24 07:05 03/14/24 07:05 03/14/24 07:05 03/14/24 07:05
I&O
03/13/24 03/14/24 03/15/24
06:59 06:59 06:59
Intake Total 1800 / 1800
Balance 1800 / 1800
Review of Systems
-
History Source: Patient
All other systems: Not reviewed unless documented
Data Reviewed
-
CT Scan: Report Reviewed by me
Labs: Labs Reviewed by me
--- NOTE | 2024-03-14 14:12 | W.PN.GI.CBS2 ---
Today's Communication / Plan
-
monitor labs
full liquids
Assessment / Plan
-
Acute recurrent pancreatitis her first episode of gallstone pancreatitis was in June 2022 status post cholecystectomy then an MRCP and IOC at that time were negative for CBD stone.
still possible that she may have passed sludge or stone but her LFTS are normal, she had no other recent change in medications, triglyceride levels are normal, and no use of alcohol.
continue supportive care with IV fluids, pain control and added Pepcid also.
MRI shows acute pancreatitis with possible peripancreatic fluid collection and also patchy areas of necrosis noted and questionable mass
Will need EUS after resolution of symptoms of pancreatitis to rule out underlying mass
Clinically she is much improved will advance her to full liquids for dinner and monitor closely
Discussed with Dr. Hayden will monitor her sodium levels which are lower today and her bicarb levels
WBC count is trending down was most likely reactive doubt infection hold off on antibiotics for now
Her hemoglobin also dropped today will need to monitor closely for possible hemorrhagic pancreatitis based on her repeat counts may need repeat imaging in the next 24 to 48 hours
Encouraged ambulation has mild abdominal distention likely from ileus and probably also from the peripancreatic fluid collections
Subjective
Subjective
Date of Service: March 14, 2024
Clinically she is doing much better her pain is markedly improved her abdomen is slightly distended, passing flatus no bowel movement yet no nausea or vomiting no fever leukocytosis is also improving. Her hemoglobin is lower today no rectal
bleeding or melena reported
Objective
Data Reviewed
Laboratory Data:
Laboratory Results
03/14/24 06:39
03/14/24 06:39
Laboratory Results
Total Bilirubin 0.5 mg/dl (0.2-1.3) 03/14/24 06:39
AST 24 U/L (14-36) 03/14/24 06:39
ALT 12 U/L (0-35) 03/14/24 06:39
Alkaline Phosphatase 60 U/L (38-126) 03/14/24 06:39
Amylase 2653 U/L (30-110) H* 03/13/24 01:46
Lipase > 4000 U/L (23-300) H* 03/13/24 05:52
Vital Signs and I&O:
Vital Signs
Temp Pulse Resp BP Pulse Ox
98.0 F 127 18 167/93 94
03/14/24 07:05 03/14/24 07:05 03/14/24 07:05 03/14/24 07:05 03/14/24 07:05
I&O
03/13/24 03/14/24 03/15/24
06:59 06:59 06:59
Intake Total 1800 / 1800
Balance 1800 / 1800
03/14/24 MRI
IMPRESSION:
Acute interstitial edematous pancreatitis. Suspect scattered small patchy areas of necrosis within the pancreatic body, overall less than 50% of the pancreatic parenchyma. Surrounding edema with probable small developing peripancreatic fluid
collection as described.
An underlying small pancreatic head mass is felt to be unlikely although not definitely excluded. Recommend imaging follow-up after treatment.
Physical Exam
Physical Exam
Cardiology: Normal Sinus Rhythm
Pulmonary: Clear
GI: Soft, Distended (Mildly distended), Tender (Tender in the epigastric area but improved from yesterday) and Normal Bowel Sounds
[2024-03-14 15:13] LABS: Lipase 2764 U/L (23-300)
[2024-03-14 15:35] VITALS: BP 153/91; BP 166/100; BP 172/99; PULSE 124; PULSE 128; PULSE 137
[2024-03-14 15:42] LABS: Blood Urea Nitrogen 11 mg/dl (7-17); Calcium 8.5 mg/dl (8.4-10.2); Carbon Dioxide 25 mmol/L (22-30); Chloride 100 mmol/L (98-107); Estimated Creatinine Clearance 65 ml/min; Glucose 115 mg/dl (70-99); Potassium 3.9 mmol/L (3.5-5.1); Sodium 133 mmol/L (135-145); eGFR > 60.00
[2024-03-14] MEDS: MORPHINE SULFATE 2 MG IV (15:44)
[2024-03-14] MEDS: LOVENOX 40 MG SC (16:59)
[2024-03-14 23:10] VITALS: BP 151/84
[2024-03-14] MEDS: TUMS CHEWABLE TABLET 200 MG PO (23:11)
[2024-03-15] MEDS: LR 1000 IV ×3 (00:30→20:12)
[2024-03-15] MEDS: PEPCID 20 MG IV ×2 (00:31→09:24)
[2024-03-15 05:43] VITALS: BMI 28.5
[2024-03-15 07:37] VITALS: BP 158/94
[2024-03-15 09:05] LABS: Hematocrit 39.6 % (37.0-47.0); Hemoglobin 13.3 g/dL (12.0-16.0); Mean Corp Hgb Conc. 33.6 g/dL (33.0-37.0); Mean Corpuscular Hgb 29.9 pg (27.0-31.0); Mean Platelet Volume 9.5 fL (7.4-10.4); Platelet Count 259 10^3/uL (130-400); Red Blood Cell Count 4.45 10^6/uL (4.20-5.40); Red Cell Dist. Width 13.6 % (11.5-14.5); White Blood Cell Count 20.3 10^3/uL (4.8-10.8)
--- NOTE | 2024-03-15 09:05 | W.PN.HOSP.TC ---
Today's Communication/Plan
-
Reduce rate of IV fluids
Assessment / Plan
Assessment / Plan
Gen-AAOx3, NAD
HEENT-NC, AT, anicteric, clear oral mm
Neck-supple
CV-reg, no M, +S1/S2
Lungs-clear B/L
Abd-distended and mild tenderness
Ext-no edema
Musculoskeletal-no cyanosis, clubbing
Skin-warm and dry
Neuro-grossly non-focal
Psych-calm, cooperative
Acute pancreatitis - Etiology elusive as patient is s/p cholecystectomy, has no current CBD stone or dilation of the bile duct or pancreatic duct. No etoh. No new medications. No h/o dm II or tryglyceridemia. Still likely gall stone episode with
a possibly passed stone.
Has had 8 L of lactated Ringer's IV fluids so far. Reduce rate to 80 cc/h.
-MRI with acute interstitial edematous pancreatitis; surrounding edema, probable small developing peripancreatic fluid collection. Small patchy areas of necrosis within the pancreatic body noted. Overall less than 50% of the pancreatic parenchyma.
� Possible small pancreatic head mass is felt to be unlikely although cannot be excluded�will need to be followed up outpatient
Lactate normalized.
Pancreatitis induced ileus -vomited dinner last night. Still distended on exam. If nausea persists or she vomits we will resume n.p.o. status.
Hyponatremia
� Monitor with resuscitation
Essential HTN
- continue amlodipine for now
DVT PPX - lovenox sq
Code status - Full Code
Anticipated Discharge: > 48 hours
Subjective/Interval History
-
Date of Service: March 15, 2024
Patient seen and examined. Complaining of abdominal distention. Less abdominal pain.
Objective Data
-
Labs:
Laboratory Results
03/15/24
07:46
WBC 20.3 H
Hgb 13.3 D
Hct 39.6
Plt Count 259 D
Sodium Pending
Potassium Pending
Chloride Pending
Carbon Dioxide Pending
BUN Pending
Creatinine Pending
Glucose Pending
Calcium Pending
Total Bilirubin Pending
AST Pending
ALT Pending
Alkaline Phosphatase Pending
Vital Signs:
Vital Signs
Temp Pulse Resp BP Pulse Ox
98.1 F 129 18 158/94 92
03/15/24 07:37 03/15/24 07:37 03/15/24 07:37 03/15/24 07:37 03/15/24 07:37
I&O
03/14/24 03/15/24 03/16/24
06:59 06:59 06:59
Intake Total 1800 / 1800
Output Total 400 / 400
Balance 1400 / 1400
Review of Systems
-
History Source: Patient
All other systems: Reviewed and negative
[2024-03-15 09:10] LABS: ALT (SGPT) 18 U/L (0-35); AST (SGOT) 38 U/L (14-36); Albumin 2.8 g/dl (3.5-5.0); Alkaline Phosphatase 84 U/L (38-126); Blood Urea Nitrogen 15 mg/dl (7-17); Calcium 8.3 mg/dl (8.4-10.2); Carbon Dioxide 27 mmol/L (22-30); Chloride 99 mmol/L (98-107); Estimated Creatinine Clearance 65 ml/min; Glucose 110 mg/dl (70-99); Potassium 3.5 mmol/L (3.5-5.1); Sodium 133 mmol/L (135-145); Total Bilirubin 0.9 mg/dl (0.2-1.3); Total Protein 5.1 g/dl (6.3-8.2); eGFR > 60.00
[2024-03-15] MEDS: NORVASC 5 MG PO (09:25)
[2024-03-15] MEDS: NSS (PRESERVATIVE FREE) 8 ML IV (09:25)
--- NOTE | 2024-03-15 09:26 | W.PN.GI.CBS2 ---
Today's Communication / Plan
-
clears
Dulcolax supp and added Miralax
Obstruction series
decrease IVF rate
incentive spirometry
Assessment / Plan
-
Acute recurrent pancreatitis her first episode of gallstone pancreatitis was in June 2022 status post cholecystectomy then an MRCP and IOC at that time were negative for CBD stone.
still possible that she may have passed sludge or stone but her LFTS are normal, she had no other recent change in medications, triglyceride levels are normal, and no use of alcohol.
continue supportive care with IV fluids decrease rate, pain control and added Pepcid also.
MRI shows acute pancreatitis with possible peripancreatic fluid collection and also patchy areas of necrosis noted and questionable mass
Will need EUS after resolution of symptoms of pancreatitis to rule out underlying mass
Clinically pain is improved
Sodium improved and bicarb now normal
Hemoglobin dropped yesterday but today normal doubt hemorrhagic pancreatitis
Encouraged ambulation has mild abdominal distention likely from ileus and probably also from the peripancreatic fluid collections or ascites
may need repeat imaging in the next 24 to 48 hours
clears
Dulcolax supp and added Miralax
Obstruction series
Incentive spirometry and antitussive
DW
Subjective
Subjective
Date of Service: March 15, 2024
Complaining of cough since last night and had 1 episode of vomiting last night, pain is improved, though still has mild abdominal distention, passing flatus no BM
Objective
Data Reviewed
Laboratory Data:
Laboratory Results
03/15/24 07:46
03/15/24 07:46
Laboratory Results
Total Bilirubin 0.9 mg/dl (0.2-1.3) 03/15/24 07:46
AST 38 U/L (14-36) H 03/15/24 07:46
ALT 18 U/L (0-35) 03/15/24 07:46
Alkaline Phosphatase 84 U/L (38-126) 03/15/24 07:46
Amylase 2653 U/L (30-110) H* 03/13/24 01:46
Lipase 2764 U/L (23-300) H* 03/14/24 06:39
Vital Signs and I&O:
Vital Signs
Temp Pulse Resp BP Pulse Ox
98.1 F 128 18 158/94 92
03/15/24 07:37 03/15/24 09:25 03/15/24 07:37 03/15/24 09:25 03/15/24 07:37
I&O
03/14/24 03/15/24 03/16/24
06:59 06:59 06:59
Intake Total 1800 / 1800
Output Total 400 / 400
Balance 1400 / 1400
Physical Exam
Physical Exam
HEENT: Anicteric
Cardiology: Normal Sinus Rhythm
Pulmonary: Rales
GI: Soft, Distended (mildly distended), Tender (mild epigastric tenderness) and Normal Bowel Sounds
[2024-03-15 10:32] LABS: COVID-19 Antigen Negative (Negative)
[2024-03-15] MEDS: LR IV (10:43)
[2024-03-15] MEDS: MIRALAX 17 GRAMS PO (13:40)
[2024-03-15] MEDS: DULCOLAX 10 MG RECTAL (13:40)
--- NOTE | 2024-03-15 14:54 | CM ---
Chart reviewed. Plan of care ongoing.
GI following
CM will cont following for d/c needs
Plan: Home; no needs anticipated
[2024-03-15 15:14] VITALS: BP 137/78
--- NOTE | 2024-03-15 16:19 | PN.CDI ---
CDI
- -
CDI:
Physician Documentation Request
Admit Date: 03/13/24 03:06
Dear Doctor Cheri,
Please review the following and provide your response in the progress notes.
Clinical Indicators:
Pt admitted with Acute Pancreatitis.
03/13 Progress note: 'Elevated Lactate - most likely adrenergic'
03/15 Progress note: 'Has had 8 L of lactated Ringer's IV fluids so far.'
Laboratory Tests
03/13/24 03/13/24 03/13/24
01:47 05:52 13:54
Carbon Dioxide 21 L
Lactic Acid 3.4 H 13.5 H*
03/14/24
06:39
Carbon Dioxide 17 L
Lactic Acid
Based on the above, could you clarify in the progress notes, the appropriate diagnosis, if significant, that supports the above abnormal lab values and additional evaluation, monitoring and/or treatment rendered:
Lactic acidosis
Insignificant abnormal lab values
Other
Use of terms such as suspected, likely, concern for, or probable (associated with a specific diagnosis that is being evaluated, monitored, or treated as if it exists) are acceptable and can be coded in the inpatient setting, when documented at the
time of discharge.
Thank you,
Elida Gonzalez RN, BSN
CDI Specialist
Available via [place] [employer]
Please use your independent medical judgment in providing your response.
[2024-03-15] MEDS: KCL 270 MEQ IV (16:24)
[2024-03-15] MEDS: LOVENOX 40 MG SC (16:31)
[2024-03-15 22:57] VITALS: BP 155/86
[2024-03-16 03:50] VITALS: BMI 28.8
[2024-03-16 07:45] VITALS: BP 161/80
[2024-03-16] MEDS: NORVASC 5 MG PO (08:03)
[2024-03-16] MEDS: MIRALAX 17 GRAMS PO (08:03)
[2024-03-16] MEDS: NSS (PRESERVATIVE FREE) 8 ML IV (08:06)
[2024-03-16] MEDS: PEPCID 20 MG IV (08:06)
--- NOTE | 2024-03-16 08:09 | W.PN.HOSP.TC ---
Addendum entered and electronically signed by Swapnil Alonzo DO 03/16/24 14:50:
Transient lactic acidosis noted, resolved.
Original Note:
Today's Communication/Plan
-
Await GI input
Stop IV fluids
Assessment / Plan
Assessment / Plan
Gen-AAOx3, NAD
HEENT-NC, AT, anicteric, clear oral mm
Neck-supple
CV-reg, no M, +S1/S2
Lungs-clear B/L
Abd-distention and tenderness improving, no guarding
Ext-no edema
Musculoskeletal-no cyanosis, clubbing
Skin-warm and dry
Neuro-grossly non-focal
Psych-calm, cooperative
Acute pancreatitis - Etiology elusive as patient is s/p cholecystectomy, has no current CBD stone or dilation of the bile duct or pancreatic duct. No etoh. No new medications. Still likely gall stone episode with a possibly passed stone.
Stop further IV fluids. Tolerating clears. Do not advance diet until okay with GI service.
-MRI with acute interstitial edematous pancreatitis; surrounding edema, probable small developing peripancreatic fluid collection. Small patchy areas of necrosis within the pancreatic body noted. Overall less than 50% of the pancreatic parenchyma.
� Possible small pancreatic head mass is felt to be unlikely although cannot be excluded. Eventual EUS to evaluate pancreatic mass as per GI service.
Lactate normalized.
Still with sinus tachycardia on exam.
Obstruction series negative. Had 4 bowel movements yesterday. Has not required analgesics in 48 hours.
Pancreatitis induced ileus -vomited dinner last night. Still distended on exam. If nausea persists or she vomits we will resume n.p.o. status.
Hyponatremia
� Monitor with resuscitation
Essential HTN
- continue amlodipine for now
DVT PPX - lovenox sq
Code status - Full Code
Anticipated Discharge: > 48 hours
Subjective/Interval History
-
Date of Service: March 16, 2024
Patient seen and examined. Feeling better. Denies abdominal pain or nausea. Eager to try solid food.
Objective Data
-
Labs:
Laboratory Results
03/16/24
06:00
WBC Pending
Hgb Pending
Hct Pending
Plt Count Pending
Sodium Pending
Potassium Pending
Chloride Pending
Carbon Dioxide Pending
BUN Pending
Creatinine Pending
Glucose Pending
Calcium Pending
Total Bilirubin Pending
AST Pending
ALT Pending
Alkaline Phosphatase Pending
Vital Signs:
Vital Signs
Temp Pulse Resp BP Pulse Ox
98.6 F 126 18 155/86 96
03/15/24 22:57 03/15/24 22:57 03/15/24 22:57 03/15/24 22:57 03/15/24 22:57
I&O
03/15/24 03/16/24 03/17/24
06:59 06:59 06:59
Intake Total 1800 / 1800 1420 / 1420
Output Total 400 / 400
Balance 1400 / 1400 1420 / 1420
Review of Systems
-
History Source: Patient
All other systems: Reviewed and negative
--- NOTE | 2024-03-16 08:33 | W.PN.GI.CBS2 ---
Today's Communication / Plan
-
LOW fat diet
DC if tolerates
EUS as OP
COntinue miralax prn
Assessment / Plan
-
Acute recurrent pancreatitis her first episode of gallstone pancreatitis was in June 2022 status post cholecystectomy then an MRCP and IOC at that time were negative for CBD stone.
still possible that she may have passed sludge or stone but her LFTS are normal, she had no other recent change in medications, triglyceride levels are normal, and no use of alcohol.
MRI shows acute pancreatitis with possible peripancreatic fluid collection and also patchy areas of necrosis noted and questionable mass
Will need EUS after resolution of symptoms of pancreatitis to rule out underlying mass
Clinically pain is improved
Abdominal distention also has markedly improved after 2 bowel movements yesterday
DC IVF
Cough is most likely related to atelectasis improved with incentive spirometry and antitussives
Will advance diet to low-fat diet okay to DC home if tolerates
Subjective
Subjective
Date of Service: March 16, 2024
Feeling much improved less cough today using the incentive spirometry, had 2 bowel movements yesterday and feels less distended, no nausea or vomiting anxious to go home
Objective
Data Reviewed
Laboratory Data:
Laboratory Results
Total Bilirubin 0.9 mg/dl (0.2-1.3) 03/15/24 07:46
AST 38 U/L (14-36) H 03/15/24 07:46
ALT 18 U/L (0-35) 03/15/24 07:46
Alkaline Phosphatase 84 U/L (38-126) 03/15/24 07:46
Amylase 2653 U/L (30-110) H* 03/13/24 01:46
Lipase 2764 U/L (23-300) H* 03/14/24 06:39
Vital Signs and I&O:
Vital Signs
Temp Pulse Resp BP Pulse Ox
98.6 F 126 18 155/86 96
12/09/24 22:57 03/15/24 22:57 03/15/24 22:57 03/15/24 22:57 03/15/24 22:57
I&O
03/15/24 03/16/24 03/17/24
06:59 06:59 06:59
Intake Total 1800 / 1800 1420 / 1420
Output Total 400 / 400
Balance 1400 / 1400 1420 / 1420
03/15/24 Obstruction series :
IMPRESSION:
1. Very small bilateral pleural effusions and adjacent atelectasis, greater on the left.
2. Nonobstructive bowel gas pattern.
3. Unchanged urinary bladder calculus.
Physical Exam
Physical Exam
Cardiology: Normal Sinus Rhythm
Pulmonary: Clear
GI: Soft, Non Distended, Non Tender and Normal Bowel Sounds
[2024-03-16 08:57] LABS: Hematocrit 34.3 % (37.0-47.0); Hemoglobin 11.4 g/dL (12.0-16.0); Mean Corp Hgb Conc. 33.2 g/dL (33.0-37.0); Mean Corpuscular Hgb 29.6 pg (27.0-31.0); Mean Corpuscular Volume 89.1 fL (81.0-99.0); Mean Platelet Volume 9.3 fL (7.4-10.4); Platelet Count 261 10^3/uL (130-400); Red Blood Cell Count 3.85 10^6/uL (4.20-5.40); Red Cell Dist. Width 13.4 % (11.5-14.5); White Blood Cell Count 11.4 10^3/uL (4.8-10.8)
[2024-03-16 09:35] LABS: ALT (SGPT) 19 U/L (0-35); AST (SGOT) 33 U/L (14-36); Albumin 2.9 g/dl (3.5-5.0); Alkaline Phosphatase 79 U/L (38-126); Blood Urea Nitrogen 9 mg/dl (7-17); Carbon Dioxide 26 mmol/L (22-30); Chloride 100 mmol/L (98-107); Estimated Creatinine Clearance 65 ml/min; Glucose 106 mg/dl (70-99); Potassium 3.4 mmol/L (3.5-5.1); Sodium 134 mmol/L (135-145); Total Bilirubin 0.8 mg/dl (0.2-1.3); Total Protein 5.3 g/dl (6.3-8.2); eGFR > 60.00
[2024-03-16 13:02] LABS: Magnesium 2.1 mg/dl (1.6-2.3)
[2024-03-16] MEDS: KCL 40 MEQ PO (13:11)
--- NOTE | 2024-03-16 14:16 | W.DS.TRANS ---
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
-
Discharge Instructions:
Discharge Diagnosis/Procedures Acute pancreatitis, hypokalemia
Diet Low Cholesterol,Low Fat
Activity As tolerated
Driving Restrictions As prior to admission
Bathing Restrictions None
Instructions:
Stand-Alone Forms:
Changes to Home Medications: No
Discharge Medications:
DC Medications w/original date entered in [employer]
amlodipine 5 mg tablet 5 mg PO DAILY Blood pressure 06/13/22
cholecalciferol (vitamin D3) 125 mcg (5,000 unit) tablet 125 mcg PO DAILY 08/01/22
multivitamin 1 tab PO DAILY 08/01/22
ondansetron 4 mg disintegrating tablet 4 mg PO Q6H PRN nausea and vomiting #20 tabs 03/16/24
Home Medication Changes
Pending Results: No
[2024-03-16 15:00] VITALS: BP 130/60
--- NOTE | 2024-03-16 15:13 | CM ---
Chart reviewed
Per GI note, can d/c if tolerates diet
Seen pt bedside, pt agreeable to d/c home. Daughter will transport
IMM reviewed, pt given copy. Copy placed in chart
No CM needs identified at this time
Plan: Home; no needs
[2024-03-16 16:30] VITALS: BP 130/60
== END 2024-03-16 16:35 | disposition home or self-care (01) | DRG 439 ==
LOC: 4 WEST ACU 03:06
PROVIDERS: Emergency Medicine; Internal Medicine; Registered Nurse; ADMITTING PHYSICIAN Internal Medicine; ATTENDING PHYSICIAN Hospitalist; CONSULT PHYSICIAN Internal Medicine Gastroenterology; EMERGENCY PHYSICIAN Emergency Medicine; FAMILY PHYSICIAN Internal Medicine
DX: K85.90 Acute pancreatitis without necrosis or infection, unspecified (principal); E87.1 Hypo-osmolality and hyponatremia; K56.7 Ileus, unspecified; E87.20 Acidosis, unspecified; J98.11 Atelectasis; E87.6 Hypokalemia; I10 Essential (primary) hypertension; Z96.611 Presence of right artificial shoulder joint; Z90.49 Acquired absence of other specified parts of digestive tract; Z79.82 Long term (current) use of aspirin; Z79.899 Other long term (current) drug therapy; Z11.52 Encounter for screening for COVID-19
CPT/HCPCS: 74022; 74176; 74183; 80048; 80053; 81003; 81015; 82150; 82248; 83605; 83615; 83690; 83735; 84478; 85025; 85027; 87086; 87811; 96361; 96374; 96375; 99285; A9575

== ENCOUNTER → 2024-03-26 09:07 | Outpatient (REF) | payer OTHER, SELFPAY ==
[2024-03-26 10:26] LABS: ALT (SGPT) 17 U/L (0-35); AST (SGOT) 28 U/L (14-36); Albumin 4.1 g/dl (3.5-5.0); Alkaline Phosphatase 92 U/L (38-126); Blood Urea Nitrogen 11 mg/dl (7-17); Calcium 9.3 mg/dl (8.4-10.2); Carbon Dioxide 28 mmol/L (22-30); Chloride 102 mmol/L (98-107); Glucose 101 mg/dl (70-99); Potassium 5.2 mmol/L (3.5-5.1); Sodium 138 mmol/L (135-145); Total Bilirubin 0.3 mg/dl (0.2-1.3); eGFR > 60.00
[2024-03-26 10:46] LABS: % Basophils 0.8 % (0-2); % Eosinophils 1.7 % (0-6); % Immature Granulocytes 1.7 % (0-0.5); % Lymphocytes 17.2 % (20.5-51.1); % Monocytes 7.2 % (1.7-9.3); % Neutrophils 71.4 % (42.2-75.2); Absolute Basophils 0.1 10^3/uL (0-0.2); Absolute Eosinophils 0.2 10^3/uL (0-0.7); Absolute Immature Granulocytes 0.2 10^3/uL (0-0.05); Absolute Lymphocytes 1.8 10^3/uL (1.2-3.4); Absolute Monocytes 0.7 10^3/uL (0.1-0.6); Absolute Neutrophils 7.3 10^3/uL (1.4-6.5); Hematocrit 36.2 % (37.0-47.0); Hemoglobin 11.9 g/dL (12.0-16.0); Mean Corp Hgb Conc. 32.9 g/dL (33.0-37.0); Mean Corpuscular Hgb 29.1 pg (27.0-31.0); Mean Corpuscular Volume 88.5 fL (81.0-99.0); Mean Platelet Volume 8.7 fL (7.4-10.4); Nucleated Red Blood Cells % 0 %; Platelet Count 618 10^3/uL (130-400); Red Blood Cell Count 4.09 10^6/uL (4.20-5.40); White Blood Cell Count 10.3 10^3/uL (4.8-10.8)
== END ==
LOC: REG 09:07
PROVIDERS: ATTENDING PHYSICIAN Nurse Practitioner
DX: K85.02 Idiopathic acute pancreatitis with infected necrosis (principal); E87.6 Hypokalemia; E87.1 Hypo-osmolality and hyponatremia
CPT/HCPCS: 36415; 80053; 85025

== ENCOUNTER → 2024-04-08 08:48 | Outpatient (REF) | payer OTHER, SELFPAY | LOC: RAD 08:48 | PROVIDERS: ATTENDING PHYSICIAN Nurse Practitioner | DX: K85.02 Idiopathic acute pancreatitis with infected necrosis (principal) | CPT/HCPCS: 71046 ==

== ENCOUNTER → 2024-06-07 07:49 | Outpatient (REF) | payer OTHER, SELFPAY ==
[2024-06-07 09:20] LABS: % Basophils 1.1 % (0-2); % Eosinophils 3.3 % (0-6); % Immature Granulocytes 0.5 % (0-0.5); % Lymphocytes 25.2 % (20.5-51.1); % Monocytes 5.7 % (1.7-9.3); % Neutrophils 64.2 % (42.2-75.2); Absolute Basophils 0.1 10^3/uL (0-0.2); Absolute Eosinophils 0.3 10^3/uL (0-0.7); Absolute Lymphocytes 2.1 10^3/uL (1.2-3.4); Absolute Monocytes 0.5 10^3/uL (0.1-0.6); Absolute Neutrophils 5.5 10^3/uL (1.4-6.5); Hematocrit 42.3 % (37.0-47.0); Hemoglobin 13.6 g/dL (12.0-16.0); Mean Corp Hgb Conc. 32.2 g/dL (33.0-37.0); Mean Corpuscular Hgb 28.7 pg (27.0-31.0); Mean Corpuscular Volume 89.2 fL (81.0-99.0); Mean Platelet Volume 9.2 fL (7.4-10.4); Nucleated Red Blood Cells % 0 %; Platelet Count 424 10^3/uL (130-400); Red Blood Cell Count 4.74 10^6/uL (4.20-5.40); Red Cell Dist. Width 12.9 % (11.5-14.5); White Blood Cell Count 8.5 10^3/uL (4.8-10.8)
[2024-06-07 09:52] LABS: ALT (SGPT) 13 U/L (0-35); AST (SGOT) 21 U/L (14-36); Albumin 4.3 g/dl (3.5-5.0); Alkaline Phosphatase 113 U/L (38-126); Blood Urea Nitrogen 15 mg/dl (7-17); Carbon Dioxide 30 mmol/L (22-30); Chloride 102 mmol/L (98-107); Glucose 91 mg/dl (70-99); Iron 83 ug/dl (37-170); Sodium 140 mmol/L (135-145); Total Bilirubin 0.3 mg/dl (0.2-1.3); Total Protein 7.3 g/dl (6.3-8.2); eGFR > 60.00
[2024-06-07 10:01] LABS: Percent Saturation 26 % (20-50); Total Iron Binding Capacity 311 ug/dl (265-497)
[2024-06-07 10:25] LABS: Ferritin 59.9 ng/ml (11.1-264.0)
== END ==
LOC: REG 07:49
PROVIDERS: ATTENDING PHYSICIAN Nurse Practitioner
DX: K85.02 Idiopathic acute pancreatitis with infected necrosis (principal); J90 Pleural effusion, not elsewhere classified; E87.6 Hypokalemia; E87.1 Hypo-osmolality and hyponatremia
CPT/HCPCS: 36415; 80053; 82728; 83540; 83550; 85025

== ENCOUNTER → 2024-06-10 12:52 | Outpatient (REF) | payer OTHER, SELFPAY | LOC: PAVMRI 12:52 | PROVIDERS: ATTENDING PHYSICIAN Internal Medicine Gastroenterology; FAMILY PHYSICIAN Nurse Practitioner | DX: K85.00 Idiopathic acute pancreatitis without necrosis or infection (principal) | CPT/HCPCS: 74183; A9575 ==

== ENCOUNTER → 2024-07-12 14:45 | Outpatient (REF) | payer OTHER, SELFPAY | LOC: RCS 14:45 | PROVIDERS: ATTENDING PHYSICIAN Nurse Practitioner; FAMILY PHYSICIAN Internal Medicine | DX: I35.0 Nonrheumatic aortic (valve) stenosis (principal) | CPT/HCPCS: 93306 ==

== ENCOUNTER → 2024-09-13 08:23 | Outpatient (REF) | payer OTHER, SELFPAY | LOC: RAD 08:23 | PROVIDERS: ATTENDING PHYSICIAN Nurse Practitioner | DX: R10.31 Right lower quadrant pain (principal) | CPT/HCPCS: 73502 ==

== ENCOUNTER → 2024-09-24 08:32 | Outpatient (REF) | payer OTHER, SELFPAY ==
[2024-09-24 09:24] LABS: % Basophils 1.2 % (0-2); % Eosinophils 4.1 % (0-6); % Immature Granulocytes 0.5 % (0-0.5); % Lymphocytes 27.3 % (20.5-51.1); % Neutrophils 60.9 % (42.2-75.2); Absolute Basophils 0.1 10^3/uL (0-0.2); Absolute Eosinophils 0.3 10^3/uL (0-0.7); Absolute Lymphocytes 1.8 10^3/uL (1.2-3.4); Absolute Monocytes 0.4 10^3/uL (0.1-0.6); Absolute Neutrophils 4.1 10^3/uL (1.4-6.5); Hematocrit 39.2 % (37.0-47.0); Hemoglobin 13.1 g/dL (12.0-16.0); Mean Corp Hgb Conc. 33.4 g/dL (33.0-37.0); Mean Corpuscular Volume 86.9 fL (81.0-99.0); Mean Platelet Volume 8.8 fL (7.4-10.4); Nucleated Red Blood Cells % 0 %; Platelet Count 373 10^3/uL (130-400); Red Blood Cell Count 4.51 10^6/uL (4.20-5.40); Red Cell Dist. Width 13.9 % (11.5-14.5); White Blood Cell Count 6.6 10^3/uL (4.8-10.8)
[2024-09-24 10:09] LABS: Blood Urea Nitrogen 13 mg/dl (7-17); Calcium 9.6 mg/dl (8.4-10.2); Carbon Dioxide 26 mmol/L (22-30); Chloride 105 mmol/L (98-107); Glucose 90 mg/dl (70-99); Potassium 4.6 mmol/L (3.5-5.1); Sodium 139 mmol/L (135-145); eGFR > 60.00
== END ==
LOC: REG 08:32
PROVIDERS: ATTENDING PHYSICIAN Orthopaedic Surgery; FAMILY PHYSICIAN Nurse Practitioner
DX: Z01.818 Encounter for other preprocedural examination (principal)
CPT/HCPCS: 36415; 80048; 85025; 93005

== ENCOUNTER 2024-10-27 06:13 | Day surgery (SDC) | payer OTHER, SELFPAY ==
--- NOTE | 2024-10-20 10:32 | VNURNOTE ---
Chart reviewed. Patient scheduled for SDS R Hip Arthroplasty 10/27. Per MT, pt scheduled for outpt PT at next day 10/28. No referral placed for PM VN, pt will start outpt day after surgery.
--- NOTE | 2024-10-20 12:26 | CM ---
CM reviewed medical records. Plan for SDS and outpatient PT for 10/28. CM left message for CM [place].
[2024-10-22 11:46] LABS: Glycohemoglobin (HgbA1c) 5.8 % (4.0-5.6)
[2024-10-22 14:32] VITALS: BMI 26.1
[2024-10-25 08:49] VITALS: BMI 26.1
--- NOTE | 2024-10-26 14:00 | VNURNOTE ---
Chart reviewed. Patient's outpt PT date changed to 11/01. Called pt to verify. She confirms that she is SDS 10/27 and [facility] PM [facility] referral entered in [facility] for SDS 10/27. PM [facility] Intake updated.
[2024-10-27] VITALS (13 sets, daily range): BP systolic 93–149; BP diastolic 48–85
[2024-10-27] MEDS: TYLENOL 650 MG PO (07:15)
[2024-10-27] MEDS: CELEBREX 200 MG PO (07:15)
[2024-10-27] MEDS: NORMOSOL-R/PLASMALYTE-A 1000 IV (07:25)
[2024-10-27] MEDS: ROXICODONE 5 MG PO (11:50)
[2024-10-27] MEDS: ANCEF 5 IV (12:37)
== END 2024-10-27 13:14 | disposition home health service (06) ==
LOC: SDS 06:13
PROVIDERS: ATTENDING PHYSICIAN Orthopaedic Surgery; FAMILY PHYSICIAN Nurse Practitioner; OTHER PHYSICIAN Physician Assistant Medical
DX: M16.11 Unilateral primary osteoarthritis, right hip (principal)
CPT/HCPCS: 27130; 36415; 73502; 83036; 87070; 97162; C1713; C1776

== ENCOUNTER 2024-11-02 15:16 | Outpatient (RCR) | payer OTHER, SELFPAY | END 2024-11-02 23:59 | disposition home or self-care (01) | LOC: RPT 15:16 | PROVIDERS: ATTENDING PHYSICIAN Orthopaedic Surgery; FAMILY PHYSICIAN Nurse Practitioner | DX: Z47.1 Aftercare following joint replacement surgery (principal); R26.89 Other abnormalities of gait and mobility; Z73.6 Limitation of activities due to disability; M25.551 Pain in right hip; M62.81 Muscle weakness (generalized); Z96.641 Presence of right artificial hip joint | CPT/HCPCS: 97110; 97162 ==

== ENCOUNTER 2024-12-03 14:05 | Outpatient (RCR) | payer OTHER, SELFPAY | END 2024-12-03 23:59 | disposition home or self-care (01) | LOC: RPT 14:05 | PROVIDERS: ATTENDING PHYSICIAN Orthopaedic Surgery; FAMILY PHYSICIAN Nurse Practitioner | DX: Z47.1 Aftercare following joint replacement surgery (principal); R26.89 Other abnormalities of gait and mobility; Z73.6 Limitation of activities due to disability; M25.551 Pain in right hip; M62.81 Muscle weakness (generalized); Z96.641 Presence of right artificial hip joint | CPT/HCPCS: 97010; 97110; 97112 ==

== ENCOUNTER 2025-01-03 14:10 | Outpatient (RCR) | payer OTHER, SELFPAY | END 2025-01-03 23:59 | disposition home or self-care (01) | LOC: RPT 14:10 | PROVIDERS: ATTENDING PHYSICIAN Orthopaedic Surgery; FAMILY PHYSICIAN Nurse Practitioner | DX: Z47.1 Aftercare following joint replacement surgery (principal); R26.89 Other abnormalities of gait and mobility; Z73.6 Limitation of activities due to disability; M25.551 Pain in right hip; M62.81 Muscle weakness (generalized); Z96.641 Presence of right artificial hip joint | CPT/HCPCS: 97010; 97110; 97112; 97116; 97140 ==

== ENCOUNTER 2025-01-11 09:34 | Outpatient (RCR) | payer OTHER, SELFPAY | END 2025-01-24 23:59 | disposition home or self-care (01) | LOC: RPT 09:34 | PROVIDERS: ATTENDING PHYSICIAN Orthopaedic Surgery; FAMILY PHYSICIAN Nurse Practitioner | DX: Z47.1 Aftercare following joint replacement surgery (principal); R26.89 Other abnormalities of gait and mobility; Z73.6 Limitation of activities due to disability; M25.551 Pain in right hip; M62.81 Muscle weakness (generalized); Z96.641 Presence of right artificial hip joint | CPT/HCPCS: 97110 ==

== ENCOUNTER 2025-02-07 11:17 | Outpatient (RCR) | payer OTHER, SELFPAY | END 2025-02-07 23:59 | disposition home or self-care (01) | LOC: RPT 11:17 | PROVIDERS: ATTENDING PHYSICIAN Orthopaedic Surgery; FAMILY PHYSICIAN Nurse Practitioner | DX: Z47.1 Aftercare following joint replacement surgery (principal); R26.89 Other abnormalities of gait and mobility; Z73.6 Limitation of activities due to disability; M25.551 Pain in right hip; M62.81 Muscle weakness (generalized); Z96.641 Presence of right artificial hip joint | CPT/HCPCS: 97110 ==

== ENCOUNTER 2025-03-08 15:55 | Outpatient (RCR) | payer OTHER, SELFPAY | END 2025-03-09 05:57 | disposition home or self-care (01) | LOC: RPT 15:55 | PROVIDERS: ATTENDING PHYSICIAN Orthopaedic Surgery; FAMILY PHYSICIAN Nurse Practitioner | DX: Z47.1 Aftercare following joint replacement surgery (principal); R26.89 Other abnormalities of gait and mobility; Z73.6 Limitation of activities due to disability; M25.551 Pain in right hip; M62.81 Muscle weakness (generalized); Z96.641 Presence of right artificial hip joint | CPT/HCPCS: 97110; 97112 ==